=== PATIENT | female | born 1965 | race Hispanic/Latino ===

== ENCOUNTER 2017-03-24 09:35 | Day surgery (SDC) | payer BC ==
[2015-10-11 13:15] VITALS: BMI 25.8
[2017-03-24] MEDS ORDERED: Propofol 10 mg/ml Inj (20 ML) ONE (11:46)
[2017-03-24] MEDS ORDERED: Midazolam 2 MG/2 ML VIAL ONE (11:46)
[2017-03-24] MEDS ORDERED: Sodium Chloride 0.9% 1,000 ML IV SCH (12:15)
[2017-03-24 13:03] VITALS: BP 123/79; PULSE 87; RESP 20; TEMP 98.3; O2SAT 97
== END 2017-03-24 14:00 | disposition home or self-care (01) ==
LOC: SDS 09:35
PROVIDERS: ATTEND Psychiatry & Neurology Addiction Medicine
DX: F32.89 Other specified depressive episodes (principal); Z87.81 Personal history of (healed) traumatic fracture
CPT/HCPCS: 90870; J2250; J2704; J3010; J7040; J7120